=== PATIENT | male | born 1990 | race Asian ===

== ENCOUNTER 2017-01-06 21:12 | Emergency (ER) | payer OTHER ==
--- NOTE | 2017-01-06 21:48 | ED ---
Rupa Vick Edward, scribed for Tomas Pepper MD on 01/06/17 at 2142 . HPI Chest Pain - HPI Summary HPI Summary: 26 y/o male presents to ED c/o intermittent dull CP starting at around 15:30. The pain is located in the mid-sternal region. Pain is not aggravated with breathing. The patient's CP resolved between 16:00 and 19:00 today; after the pt ate dinner, however, the pain reappeared. Pt was walking when it started. Pt c/o mild CP in the ED. - History of Current Complaint Chief Complaint: EDChestPainROMI Time Seen by Provider: 01/06/17 21:38 Hx Obtained From: Patient Onset/Duration: Started Hours Ago, Still Present - 15:30 today Timing: Intermittent Initial Severity: Mild Current Severity: Mild Pain Intensity: 0 Chest Pain Location: Mid Sternal Character: Dull/Aching Aggravating Factor(s): Nothing Associated Signs and Symptoms: Positive: Chest Pain - Allergy/Home Medications Allergies/Adverse Reactions: Allergies Allergy/AdvReac Type Severity Reaction Status Date / Time No Known Allergies Allergy Verified 01/06/17 21:15 PMH/Surg Hx/FS Hx/Imm Hx Previously Healthy: No Endocrine/Hematology History: Denies: Hx Diabetes Cardiovascular History: Denies: Hx Myocardial Infarction - Surgical History Surgery Procedure, Year, and Place: None Infectious Disease History: No Infectious Disease History: Reports: Traveled Outside the in Last 30 Days - [place] - Family History Known Family History: Positive: Hypertension Negative: Cardiac Disease, Diabetes - Social History Occupation: Student Lives: With Family - With roommates Alcohol Use: Occasionally Hx Substance Use: No Substance Use Type: Reports: None Hx Tobacco Use: No Smoking Status (MU): Never Smoked Tobacco Review of Systems Constitutional: Negative Eyes: Negative ENT: Negative Positive: Chest Pain Respiratory: Negative Gastrointestinal: Negative Genitourinary: Negative Musculoskeletal: Negative Skin: Negative Neurological: Negative Psychological: Normal All Other Systems Reviewed And Are Negative: Yes Physical Exam Triage Information Reviewed: Yes Vital Signs On Initial Exam: Initial Vitals Temp Pulse Resp BP Pulse Ox 97.3 F 73 16 130/81 96 01/06/17 21:15 01/06/17 21:15 01/06/17 21:15 01/06/17 21:15 08/10/17 21:15 Vital Signs Reviewed: Yes Appearance: Positive: Well-Appearing, No Pain Distress Skin: Positive: Warm Head/Face: Positive: Normal Head/Face Inspection Eyes: Positive: GALE ENT: Positive: Hearing grossly normal Neck: Positive: Supple, Nontender Respiratory/Lung Sounds: Positive: Breath Sounds Present Cardiovascular: Positive: RRR Abdomen Description: Positive: Nontender, Soft Bowel Sounds: Positive: Present Musculoskeletal: Positive: Strength/ROM Intact Neurological: Positive: Sensory/Motor Intact Psychiatric: Positive: Affect/Mood Appropriate Diagnostics - Vital Signs Vital Signs Temp Pulse Resp BP Pulse Ox 01/06/17 21:18 97.3 F 74 14 130/81 96 01/06/17 21:15 97.3 F 73 16 130/81 96 - Laboratory Result Diagrams: 01/06/17 21:56 01/06/17 21:56 Lab Statement: Any lab studies that have been ordered have been reviewed, and results considered in the medical decision making process. - EKG 1 EKG Interpretation: 21:31 - SINUS RHYTHM @ 68 bpm Re-Evaluation - Re-Evaluation First Eval Change: Improved Comment: results d/w pt Chest Pain Course/Dx - Course Assessment/Plan: 26 y/o male presents to ED c/o intermittent dull CP starting at around 15:30. The pain is located in the mid-sternal region. Pain is not aggravated with breathing. The patient's CP resolved between 16:00 and 19:00 today; after the pt ate dinner, however, the pain reappeared. Pt was walking when it started. Pt c/o mild CP in the ED. EKG @ 21:31 - SINUS RHYTHM @ 68 bpm. Pt will be d/c home with f/u with PCP. - Diagnoses Provider Diagnoses: Chest pain Discharge - Discharge Plan Condition: Stable Disposition: HOME Patient Education Materials: Chest Pain (ED) Referrals: Beena Orr [employer] [Primary Care Provider] - 3 Days (Please f/u in 2-3 days) The documentation as recorded by the Rupa persaud Edward accurately reflects the service I personally performed and the decisions made by , Tomas Pepper MD.
[2017-01-06 22:06] LABS: Hematocrit 46 % (42-52); Hemoglobin 15.5 g/dl (14.0-18.0); Mean Corpuscular HGB Conc 34 g/dl (31-36); Mean Corpuscular Hemoglobin 28 pg (27-31); Mean Corpuscular Volume 83 fL (80-94); Mean Platelet Volume 8 um3 (7.4-10.4); Red Blood Count 5.57 10^6/ul (4.0-5.4); Red Cell Distribution Width 13 % (10.5-15); White Blood Count 8.9 10^3/ul (3.5-10.8)
[2017-01-06 22:20] LABS: BUN/Creatinine Ratio 13.4 (8-20); Calcium 9.8 mg/dL (8.6-10.3); EGFR African American 78.8 (>60); EGFR Non-African American 61.3 (>60); Potassium 3.9 mmol/L (3.5-5.0)
[2017-01-06 22:39] VITALS: BP 120/71
== END 2017-01-06 22:53 | disposition home or self-care (01) ==
LOC: ED 21:12
DX: R07.9 Chest pain, unspecified (principal)
CPT/HCPCS: 36415; 80048; 84484; 85025; 85379; 93005; 99282

== ENCOUNTER 2019-07-15 06:31 | Emergency (ER) | payer OTHER ==
--- NOTE | 2019-07-15 06:47 | ED ---
HPI Chest Pain - History of Current Complaint Pain Intensity: 3 - Allergy/Home Medications Allergies/Adverse Reactions: Allergies Allergy/AdvReac Type Severity Reaction Status Date / Time No Known Allergies Allergy Verified 01/06/17 21:15 Home Medications: Home Medications Multivitamin [Multiple Vitamins] 1 tab PO DAILY 07/15/19 [History Confirmed ] PMH/Surg Hx/FS Hx/Imm Hx Endocrine/Hematology History: Denies: Hx Diabetes Cardiovascular History: Denies: Hx Hypertension, Hx Myocardial Infarction, Hx Pacemaker/ICD Respiratory History: Denies: Hx Asthma Sensory History: Denies: Hx Hearing Aid Psychiatric History: Denies: Hx Panic Disorder - Surgical History Surgery Procedure, Year, and Place: FRACTURED RT ARM CHILD Infectious Disease History: No Infectious Disease History: Reports: Traveled Outside the in Last 30 Days - [facility] - Family History Known Family History: Positive: Hypertension Negative: Cardiac Disease, Diabetes - Social History Alcohol Use: Occasionally Hx Substance Use: No Substance Use Type: Reports: None Hx Tobacco Use: No Smoking Status (MU): Never Smoked Tobacco Physical Exam Vital Signs On Initial Exam: Initial Vitals Temp Pulse Resp BP Pulse Ox 98.4 F 62 20 140/87 100 07/15/19 06:40 07/15/19 06:40 07/15/19 06:40 07/15/19 06:40 07/15/19 06:40 Diagnostics - Vital Signs Vital Signs Temp Pulse Resp BP Pulse Ox 07/15/19 06:40 98.4 F 62 20 140/87 100 - Laboratory Lab Statement: Any lab studies that have been ordered have been reviewed, and results considered in the medical decision making process. - EKG 0637 Cardiac Rate: NL - 62 bpm EKG Rhythm: Sinus Rhythm ST Segment: Normal Ectopy: None Summary of EKG Findings: EKG at 0637 shows NSR at 62 bpm. No STEMI. An ED physician has reviewed and interpreted this EKG. Discharge ED - Discharge Plan Referrals: Kylah Sánchez MD [Primary Care Provider] - - Attestation Statements Document Initiated by Scribe: Yes
--- NOTE | 2019-07-15 07:05 | ED ---
HPI Chest Pain - HPI Summary HPI Summary: Pt. is a 28 y.o female who presents to the ED for left sided chest pain x 3-4 days. Pt. is a student at [employer] and notes he has been up very late the last few days studying. Pt. states pain is dull/pressure and seems to occur late at night. Pt. denies associated SOB, syncope, abd. pain, fever, cough, vomiting. Notes drinking around 24 ounces of coffee a day and diet soda. Pt. states he has barely been sleeping. Denies drug use. Notes occasional ETOH use but denies recent. Otherwise denies past hx. Notes family hx of HTN and HLD but denies CAD. Pt. seen in ED in 2017 for similar sxs. Sxs are moderate in severity. No current modifying factors. - History of Current Complaint Chief Complaint: EDChestPainROMI Time Seen by Provider: 07/15/19 07:05 Hx Obtained From: Patient Pain Intensity: 3 - Allergy/Home Medications Allergies/Adverse Reactions: Allergies Allergy/AdvReac Type Severity Reaction Status Date / Time No Known Allergies Allergy Verified 07/15/19 06:51 Home Medications: Home Medications Multivitamin [Multiple Vitamins] 1 tab PO DAILY 07/15/19 [History Confirmed ] PMH/Surg Hx/FS Hx/Imm Hx Previously Healthy: Yes Endocrine/Hematology History: Denies: Hx Diabetes Cardiovascular History: Denies: Hx Hypertension, Hx Myocardial Infarction, Hx Pacemaker/ICD Respiratory History: Denies: Hx Asthma Sensory History: Denies: Hx Hearing Aid Psychiatric History: Denies: Hx Panic Disorder - Surgical History Surgery Procedure, Year, and Place: FRACTURED RT ARM CHILD - Immunization History Date of Influenza Vaccine: did not receive Immunizations Up to Date: Yes Infectious Disease History: No Infectious Disease History: Reports: Traveled Outside the [place] in Last 30 Days - [facility] - Family History Known Family History: Positive: Hypertension Negative: Cardiac Disease, Diabetes - Social History Occupation: Student Lives: Dormitory/Roommates Alcohol Use: Occasionally Hx Substance Use: No Substance Use Type: Reports: None Hx Tobacco Use: No Smoking Status (MU): Never Smoked Tobacco Review of Systems - ROS Summary Review of Systems Summary: Multivitamin [Multiple Vitamins] 1 tab PO DAILY 07/15/19 [History Confirmed ] Constitutional: Negative Negative: Fever Positive: Chest Pain Respiratory: Negative Negative: Shortness Of Breath, Cough Gastrointestinal: Negative Negative: Abdominal Pain, Vomiting Positive: Headache Positive: Anxious All Other Systems Reviewed And Are Negative: Yes Physical Exam Triage Information Reviewed: Yes Vital Signs On Initial Exam: Initial Vitals Temp Pulse Resp BP Pulse Ox 98.4 F 62 20 140/87 100 07/15/19 06:40 07/15/19 06:40 07/15/19 06:40 07/15/19 06:40 07/15/19 06:40 Vital Signs Reviewed: Yes Appearance: Positive: Well-Appearing - Pt. sitting on bed in NAD. Skin: Positive: Warm, Dry Head/Face: Positive: Normal Head/Face Inspection Eyes: Positive: Normal, EOMI, GALE Neck: Positive: Supple Respiratory/Lung Sounds: Positive: Clear to Auscultation, Breath Sounds Present. Negative: Rales, Rhonchi, Wheezes Cardiovascular: Positive: Normal, RRR Abdomen Description: Positive: Nontender, Soft Musculoskeletal: Positive: Normal, Strength/ROM Intact Neurological: Positive: Normal, CN Intact II-III Psychiatric: Positive: Affect/Mood Appropriate Procedures - Sedation Patient Received Moderate/Deep Sedation with Procedure: No Diagnostics - Vital Signs Vital Signs Temp Pulse Resp BP Pulse Ox 07/15/19 06:49 56 11 147/97 98 07/15/19 06:48 61 14 98 07/15/19 06:40 98.4 F 62 20 140/87 100 - Laboratory Result Diagrams: 07/15/19 07:16 07/15/19 07:16 Lab Statement: Any lab studies that have been ordered have been reviewed, and results considered in the medical decision making process. - EKG 0637 Cardiac Rate: NL - 62 bpm EKG Rhythm: Sinus Rhythm ST Segment: Normal Ectopy: None Summary of EKG Findings: EKG at 0637 shows NSR at 62 bpm. No STEMI. An ED physician has reviewed and interpreted this EKG. Chest Pain Course/Dx - Course Course Of Treatment: Pt. with intermittent cp over the last few days. Pt. notes lack of sleep and increased caffeine. Denies drug use. VS stable. ECG done at 0637 shows a sinus rhythm of 62bpm, normal axis, appropriate intervals, no STEMI. CXR negative for acute findings per radiology. Labs unremarkable. On re- exam pt. working on his laptop in [facility]. Suspicion for cardiopulmonary etiology low based on risk factors and presentation. BP has been mildly elevated. Pt. will f.u with his PCP. Advised to avoid caffeine, stress, increase sleep. WIll return to er if sxs change or worsen. pt. understands and agrees with plan. - Chest Pain Differential Diagnosis/HQI/PQRI: Acute OH, Chest Wall, GI Disease, Lower Respiratory Infection - Diagnoses Provider Diagnoses: Atypical chest pain Discharge ED - Sign-Out/Discharge Documenting (check all that apply): Patient Departure - Discharge Plan Condition: Improved Disposition: HOME Patient Education Materials: Chest Pain (ED), Hypertension (ED) Referrals: [facility] [Outside] Kylah Sánchez MD [Primary Care Provider] - Additional Instructions: Please follow up with the [facility] within one week for recheck and re-evaluation of blood pressure Avoid excessive caffeine use Increase fluids and rest Return to ER if symptoms change or worsen - Billing Disposition and Condition Condition: IMPROVED Disposition: Home - Attestation Statements Provider Attestation: I was available for consult. This patient was seen by the GINETTE. The patient was not presented to, seen by, or examined by me. -Elliott
[2019-07-15 07:24] LABS: ABS Basophils 0.1 10^3/ul (0-0.2); ABS Eosinophils 0.1 10^3/ul (0-0.6); ABS Monocytes 0.5 10^3/ul (0-0.8); ABS Neutrophils 4.1 10^3/ul (1.5-7.7); Eosinophil % 1.6 %; Hematocrit 43 % (42-52); Hemoglobin 14.8 g/dL (14.0-18.0); Lymphocyte % 38.5 %; Mean Corpuscular HGB Conc 34 g/dL (31-36); Mean Corpuscular Hemoglobin 28 pg (27-31); Mean Corpuscular Volume 81 fL (80-94); Mean Platelet Volume 7.9 fL (7.4-10.4); Nucleated Red Blood Cells % 0.1; Platelet Count 214 10^3/uL (150-450); Red Blood Count 5.31 10^6 /uL (4.18-5.48); Red Cell Distribution Width 13 % (10-15); White Blood Count 7.9 10^3/uL (3.5-10.8)
[2019-07-15 07:39] LABS: Albumin 4.4 g/dL (3.2-5.2); Potassium 3.7 mmol/L (3.5-5.0); Total Bilirubin 0.7 mg/dL (0.2-1.0)
[2019-07-15 07:45] LABS: Albumin/Globulin Ratio 1.6 (1-3); BUN/Creatinine Ratio 13.8 (8-20); EGFR African American 98.9 (>60); EGFR Non-African American 81.8 (>60); Globulin 2.8 g/dL (2-4); Total Protein 7.2 g/dL (6.4-8.9)
[2019-07-15 08:27] VITALS: BP 135/83
== END 2019-07-15 08:23 | disposition home or self-care (01) ==
LOC: ED 06:31
DX: R07.89 Other chest pain (principal)
CPT/HCPCS: 36415; 71045; 80053; 84484; 85025; 93005; 99282